=== PATIENT | male | born 1940 | race Caucasian/White ===

== ENCOUNTER 2016-11-05 14:40 | Observation (INO) | payer OTHER ==
[~2016-11-05] VITALS: Ht 175.3 cm; Wt 66.1 kg
[2016-11-05 15:04] LABS: BASOPHILS 0.7 % (0.0-2.0); EOSINOPHILS 3.1 % (0-7); HEMATOCRIT 47.4 % (42.0-54.0); HEMOGLOBIN 16.3 g/dL (13.5-17.5); IMMATURE GRANULOCYTES 0.1 % (0-5); LYMPHOCYTES 29.7 % (15-50); MCH 33.5 pg (26.0-34.0); MCHC 34.4 g/dL (31.0-37.0); MCV 97.5 fL (80.0-100.0); MEAN PLATELET VOLUME 9.3 fL (7.4-10.4); MONOCYTES 11.9 % (2-11); NEUTROPHILS 54.5 % (40-80); PLATELET COUNT 372 10x3/uL (130-400); RBC 4.86 10x6/uL (4.20-6.10); RDW 14.3 % (11.5-14.5); WBC 8.6 10x3/uL (4.8-10.8)
[2016-11-05 15:31] LABS: ALBUMIN 3.3 g/dL (3.4-5.0); ALKALINE PHOSPHATASE 86 U/L (46-116); ALT (SGPT) 20 U/L (10-68); BILIRUBIN - TOTAL 0.74 mg/dL (0.2-1.3); CALC OSMOLALITY 279 mosm/kg (275-300); CALCIUM 8.9 mg/dL (8.5-10.1); CARBON DIOXIDE 25.9 mmol/L (21.0-32.0); CHLORIDE - SERUM 104 mmol/L (98-107); CREATININE - SERUM 1.3 mg/dL (0.6-1.3); GLUCOSE 102 mg/dL (74-106); POTASSIUM - SERUM 4.4 mmol/L (3.5-5.1); PROTEIN - SERUM 6.9 g/dL (6.4-8.2); SODIUM 140 mmol/L (136-145); UREA NITROGEN 16 mg/dL (7-18); eGFR NON AFRICAN AMERICAN 57 mL/min (90-120)
[2016-11-05 15:43] LABS: CHOLESTEROL, TOTAL 121 mg/dL (0-200); CKMB 0.5 U/L (0.0-3.6); CREATINE KINASE 31 UL (21-232); HDL CHOLESTEROL 41 mg/dL (32-96); LDL CHOLESTEROL 61 mg/dL (0-100); LDL-HDL RATIO 1.5 ratio (1.5-3.5); TRIGLYCERIDE 96 mg/dL (30-200)
[2016-11-05 15:44] LABS: TROPONIN-I < 0.017 ng/mL (0.000-0.060)
[2016-11-05 16:03] LABS: APTT 32.9 SECONDS (22.8-39.4); INR 1.1 (0.85-1.17); PROTIME 14.1 SECONDS (11.6-15.0)
--- NOTE | 2016-11-05 21:02 | NUR ---
ARRIVED TO FLOOR, PLACED ON TELEMETRY. ORIENTED TO UNIT, CALL LIGHT IN REACH. 124 UCAF ON TELEMETRY. WILL CONTINUE TO MONITOR. SEE NURSE ASSESSMENT.
[2016-11-05 22:56] VITALS: BP 106/83; Ht 175.3 cm; Wt 66.1 kg
[2016-11-06] VITALS: BP 106/88
[2016-11-06 04:00] VITALS: BP 94/58
--- NOTE | 2016-11-06 05:30 | NUR ---
CALL LIGHT IN REACH. WILL CONTINUE WITH PLAN OF CARE.
[2016-11-06] MEDS ORDERED: LISINOPRIL5 MG PO (06:34)
[2016-11-06] MEDS ORDERED: NORVASC2.5 MG PO (06:35)
--- NOTE | 2016-11-06 07:30 | NUR ---
RECEIVED PT IN BED EYES CLOSED RESP UNLABORED NAD NOTED
[2016-11-06 08:00] VITALS: BP 122/67
[2016-11-06] MEDS ORDERED: BETAPACE 80 MG80 MG PO (10:09)
--- NOTE | 2016-11-06 11:13 | NUR ---
REVIEWED DISCHARGE INSTRUCTIONS PT STATES UNDERSTANDING COPY GIVEN TO PT SALINE LOCK TO LT WRIST DCD NO REDNESS OR EDEMA NOTED TO SITE PT DISCHARGED HOME IN STABLE CONDITION VIA W/C LEFT WITH ALL PERSONAL BELONGINGS
== END 2016-11-06 11:13 | disposition home or self-care (01) ==
LOC: D.ER 14:40 → OBSVTIME 17:01 → D.M2 17:01
PROVIDERS: Emergency Medicine Emergency Medical Services; Nurse Practitioner Acute Care; ADMIT Family Medicine Adult Medicine
DX: I48.91 Unspecified atrial fibrillation (principal); R00.0 Tachycardia, unspecified; I10 Essential (primary) hypertension; F17.203 Nicotine dependence unspecified, with withdrawal; R07.9 Chest pain, unspecified

== ENCOUNTER 2016-11-20 15:34 | Emergency (ER) | payer OTHER ==
[2016-11-05 22:56] VITALS: BMI 21.5
[~2016-11-20 15:34] MED LIST: BETAPACE 80 MG80 MG PO; LISINOPRIL5 MG PO; NORVASC2.5 MG PO
[2016-11-20 16:05] LABS: BASOPHILS 0.4 % (0.0-2.0); EOSINOPHILS 2.3 % (0-7); HEMATOCRIT 49.6 % (42.0-54.0); HEMOGLOBIN 16.7 g/dL (13.5-17.5); IMMATURE GRANULOCYTES 0.2 % (0-5); LYMPHOCYTES 17.2 % (15-50); MCH 32.9 pg (26.0-34.0); MCHC 33.7 g/dL (31.0-37.0); MCV 97.6 fL (80.0-100.0); MEAN PLATELET VOLUME 9.5 fL (7.4-10.4); MONOCYTES 10.5 % (2-11); NEUTROPHILS 69.4 % (40-80); PLATELET COUNT 388 10x3/uL (130-400); RBC 5.08 10x6/uL (4.20-6.10); RDW 14.3 % (11.5-14.5); WBC 11.4 10x3/uL (4.8-10.8)
[2016-11-20 16:18] LABS: ALBUMIN 3.3 g/dL (3.4-5.0); ALKALINE PHOSPHATASE 87 U/L (46-116); ALT (SGPT) 19 U/L (10-68); BILIRUBIN - TOTAL 1.18 mg/dL (0.2-1.3); CALC OSMOLALITY 279 mosm/kg (275-300); CALCIUM 9.1 mg/dL (8.5-10.1); CARBON DIOXIDE 27.8 mmol/L (21.0-32.0); CHLORIDE - SERUM 104 mmol/L (98-107); CREATININE - SERUM 1.5 mg/dL (0.6-1.3); GLUCOSE 104 mg/dL (74-106); PROTEIN - SERUM 7.8 g/dL (6.4-8.2); SODIUM 139 mmol/L (136-145); UREA NITROGEN 17 mg/dL (7-18); eGFR NON AFRICAN AMERICAN 49 mL/min (90-120)
[2016-11-20 16:19] LABS: POTASSIUM - SERUM 5.5 mmol/L (3.5-5.1)
[2016-11-20 16:30] LABS: CHOL - HDL RATIO 3.1 ratio (2.3-4.9); CHOLESTEROL, TOTAL 120 mg/dL (0-200); CKMB 0.7 U/L (0.0-3.6); CREATINE KINASE 80 UL (21-232); HDL CHOLESTEROL 39 mg/dL (32-96); LDL CHOLESTEROL 58 mg/dL (0-100); LDL-HDL RATIO 1.5 ratio (1.5-3.5); TRIGLYCERIDE 115 mg/dL (30-200); TROPONIN-I < 0.017 ng/mL (0.000-0.060)
== END 2016-11-20 17:00 | disposition home or self-care (01) ==
LOC: D.ER 15:34
PROVIDERS: Emergency Medicine
DX: R07.89 Other chest pain (principal); I47.1 Supraventricular tachycardia; I48.91 Unspecified atrial fibrillation; I10 Essential (primary) hypertension; F17.200 Nicotine dependence, unspecified, uncomplicated; I45.10 Unspecified right bundle-branch block

== ENCOUNTER 2016-12-29 00:21 | Emergency (ER) | payer OTHER ==
[2016-11-05 22:56] VITALS: BMI 21.5
[2016-12-29 01:05] LABS: HEMATOCRIT 44.7 % (42.0-54.0); HEMOGLOBIN 15.4 g/dL (13.5-17.5); LYMPHOCYTES 24.9 % (15-50); MCHC 34.5 g/dL (31.0-37.0); MCV 92.9 fL (80.0-100.0); MEAN PLATELET VOLUME 8.9 fL (7.4-10.4); NEUTROPHILS 58.5 % (40-80); PLATELET COUNT 343 10x3/uL (130-400); RBC 4.81 10x6/uL (4.20-6.10); RDW 14.7 % (11.5-14.5); WBC 8.7 10x3/uL (4.8-10.8)
[2016-12-29 01:17] LABS: ALBUMIN 3.2 g/dL (3.4-5.0); ALKALINE PHOSPHATASE 87 U/L (46-116); ALT (SGPT) 16 U/L (10-68); BILIRUBIN - TOTAL 1.71 mg/dL (0.2-1.3); CALC OSMOLALITY 272 mosm/kg (275-300); CALCIUM 8.9 mg/dL (8.5-10.1); CARBON DIOXIDE 27.3 mmol/L (21.0-32.0); CHLORIDE - SERUM 100 mmol/L (98-107); CREATININE - SERUM 1.2 mg/dL (0.6-1.3); GLUCOSE 89 mg/dL (74-106); POTASSIUM - SERUM 3.9 mmol/L (3.5-5.1); PROTEIN - SERUM 7.3 g/dL (6.4-8.2); SODIUM 136 mmol/L (136-145); UREA NITROGEN 19 mg/dL (7-18); eGFR NON AFRICAN AMERICAN 63 mL/min (90-120)
[2016-12-29 01:25] LABS: CHOLESTEROL, TOTAL 136 mg/dL (0-200); CKMB 0.6 U/L (0.0-3.6); CREATINE KINASE 20 UL (21-232); HDL CHOLESTEROL 45 mg/dL (32-96); LDL CHOLESTEROL 76 mg/dL (0-100); LDL-HDL RATIO 1.7 ratio (1.5-3.5); THYROID STIMULATING HORMONE 2.79 uIU/mL (0.36-3.74); TRIGLYCERIDE 76 mg/dL (30-200)
[2016-12-29 01:26] LABS: TROPONIN-I < 0.017 ng/mL (0.000-0.060)
== END 2016-12-29 02:10 | disposition home or self-care (01) ==
LOC: D.ER 00:21
PROVIDERS: Emergency Medicine
DX: R07.9 Chest pain, unspecified (principal); I48.91 Unspecified atrial fibrillation; I10 Essential (primary) hypertension; F17.200 Nicotine dependence, unspecified, uncomplicated

== ENCOUNTER 2016-12-29 11:26 | Emergency (ER) | payer OTHER ==
[2016-11-05 22:56] VITALS: BMI 21.5
== END 2016-12-29 14:50 | disposition left against medical advice (07) ==
LOC: D.ER 11:26
DX: M54.2 Cervicalgia (principal)

== ENCOUNTER 2016-12-29 19:03 | Emergency (ER) | payer OTHER ==
[2016-11-05 22:56] VITALS: BMI 21.5
== END 2016-12-29 20:05 | disposition home or self-care (01) ==
LOC: D.ER 19:03
DX: M54.2 Cervicalgia (principal); I10 Essential (primary) hypertension; F17.200 Nicotine dependence, unspecified, uncomplicated

== ENCOUNTER 2017-01-16 12:37 | Emergency (ER) | payer OTHER ==
[2016-11-05 22:56] VITALS: BMI 21.5
[2017-01-16 13:41] LABS: BASOPHILS 0.6 % (0.0-2.0); EOSINOPHILS 2.8 % (0-7); HEMATOCRIT 45.5 % (42.0-54.0); HEMOGLOBIN 15.2 g/dL (13.5-17.5); IMMATURE GRANULOCYTES 0.6 % (0-5); LYMPHOCYTES 25.7 % (15-50); MCH 31.9 pg (26.0-34.0); MCHC 33.4 g/dL (31.0-37.0); MCV 95.4 fL (80.0-100.0); MEAN PLATELET VOLUME 9.5 fL (7.4-10.4); MONOCYTES 9.2 % (2-11); NEUTROPHILS 61.1 % (40-80); RBC 4.77 10x6/uL (4.20-6.10); RDW 14.9 % (11.5-14.5); WBC 7.1 10x3/uL (4.8-10.8)
[2017-01-16 13:45] LABS: PLATELET COUNT 487 10x3/uL (130-400)
[2017-01-16 14:11] LABS: ALBUMIN 3.2 g/dL (3.4-5.0); ANION GAP 13.5 mmol/L (8-16); BILIRUBIN - TOTAL 1.13 mg/dL (0.2-1.3); CARBON DIOXIDE 26.2 mmol/L (21.0-32.0); CREATININE - SERUM 1.5 mg/dL (0.6-1.3); POTASSIUM - SERUM 4.7 mmol/L (3.5-5.1); PROTEIN - SERUM 6.3 g/dL (6.4-8.2)
== END 2017-01-16 15:35 | disposition home or self-care (01) ==
LOC: D.ER 12:37
PROVIDERS: Emergency Medicine
DX: R06.02 Shortness of breath (principal); F17.200 Nicotine dependence, unspecified, uncomplicated; I10 Essential (primary) hypertension; I47.1 Supraventricular tachycardia

== ENCOUNTER 2017-01-17 13:00 | Emergency (ER) | payer OTHER ==
[2016-11-05 22:56] VITALS: BMI 21.5
[2017-01-17 14:14] LABS: BASOPHILS 0.4 % (0.0-2.0); EOSINOPHILS 2.1 % (0-7); HEMATOCRIT 45.4 % (42.0-54.0); HEMOGLOBIN 15.5 g/dL (13.5-17.5); IMMATURE GRANULOCYTES 0.4 % (0-5); LYMPHOCYTES 25.3 % (15-50); MCH 32.2 pg (26.0-34.0); MCHC 34.1 g/dL (31.0-37.0); MCV 94.2 fL (80.0-100.0); MEAN PLATELET VOLUME 9.3 fL (7.4-10.4); NEUTROPHILS 59.8 % (40-80); PLATELET COUNT 394 10x3/uL (130-400); RBC 4.82 10x6/uL (4.20-6.10); RDW 14.9 % (11.5-14.5); WBC 7.1 10x3/uL (4.8-10.8)
[2017-01-17 14:54] LABS: CALC OSMOLALITY 282 mosm/kg (275-300); CALCIUM 8.9 mg/dL (8.5-10.1); CARBON DIOXIDE 27.5 mmol/L (21.0-32.0); CHLORIDE - SERUM 106 mmol/L (98-107); CREATINE KINASE 17 UL (21-232); CREATININE - SERUM 1.3 mg/dL (0.6-1.3); POTASSIUM - SERUM 4.1 mmol/L (3.5-5.1); SODIUM 140 mmol/L (136-145); TROPONIN-I < 0.017 ng/mL (0.000-0.060); UREA NITROGEN 25 mg/dL (7-18); eGFR NON AFRICAN AMERICAN 57 mL/min (90-120)
[2017-01-17 14:56] LABS: GLUCOSE 97 mg/dL (74-106)
== END 2017-01-17 16:05 | disposition home or self-care (01) ==
LOC: D.ER 13:00
PROVIDERS: Emergency Medicine
DX: I48.91 Unspecified atrial fibrillation (principal); R55 Syncope and collapse; R42 Dizziness and giddiness; I10 Essential (primary) hypertension; F17.200 Nicotine dependence, unspecified, uncomplicated

== ENCOUNTER 2017-01-21 10:15 | Emergency (ER) | payer OTHER ==
[2016-11-05 22:56] VITALS: BMI 21.5
[2017-01-21 11:04] LABS: BASOPHILS 0.4 % (0.0-2.0); EOSINOPHILS 1.8 % (0-7); HEMATOCRIT 44.4 % (42.0-54.0); HEMOGLOBIN 15.1 g/dL (13.5-17.5); IMMATURE GRANULOCYTES 0.1 % (0-5); LYMPHOCYTES 24.7 % (15-50); MCH 32.3 pg (26.0-34.0); MCV 94.9 fL (80.0-100.0); MEAN PLATELET VOLUME 9.3 fL (7.4-10.4); MONOCYTES 8.5 % (2-11); NEUTROPHILS 64.5 % (40-80); PLATELET COUNT 359 10x3/uL (130-400); RBC 4.68 10x6/uL (4.20-6.10); WBC 7.7 10x3/uL (4.8-10.8)
[2017-01-21 11:24] LABS: ALBUMIN 3.2 g/dL (3.4-5.0); BILIRUBIN - TOTAL 1.32 mg/dL (0.2-1.3); CALCIUM 8.5 mg/dL (8.5-10.1); CARBON DIOXIDE 24.9 mmol/L (21.0-32.0); CREATININE - SERUM 1.4 mg/dL (0.6-1.3); POTASSIUM - SERUM 3.9 mmol/L (3.5-5.1); PROTEIN - SERUM 6.8 g/dL (6.4-8.2)
[2017-01-21 11:42] LABS: TROPONIN-I 0.016 ng/mL (0.000-0.060)
== END 2017-01-21 15:50 | disposition home or self-care (01) ==
LOC: D.ER 10:15
PROVIDERS: Emergency Medicine
DX: R42 Dizziness and giddiness (principal); J44.1 Chronic obstructive pulmonary disease with (acute) exacerbation; I48.91 Unspecified atrial fibrillation; I10 Essential (primary) hypertension; F17.200 Nicotine dependence, unspecified, uncomplicated; I45.10 Unspecified right bundle-branch block

== ENCOUNTER 2017-01-23 09:21 | Emergency (ER) | payer OTHER ==
[2016-11-05 22:56] VITALS: BMI 21.5
== END 2017-01-23 13:35 | disposition home or self-care (01) ==
LOC: D.ER 09:21
DX: I48.2 Chronic atrial fibrillation (principal); J44.9 Chronic obstructive pulmonary disease, unspecified; I10 Essential (primary) hypertension; F17.200 Nicotine dependence, unspecified, uncomplicated

== ENCOUNTER 2017-01-23 14:06 | Emergency (ER) | payer OTHER ==
[2016-11-05 22:56] VITALS: BMI 21.5
== END 2017-01-23 21:37 | disposition home or self-care (01) ==
LOC: D.ER 14:06
DX: J44.1 Chronic obstructive pulmonary disease with (acute) exacerbation (principal); F17.200 Nicotine dependence, unspecified, uncomplicated

== ENCOUNTER 2017-02-05 20:43 | Emergency (ER) | payer OTHER ==
[2016-11-05 22:56] VITALS: BMI 21.5
== END 2017-02-05 22:14 | disposition home or self-care (01) ==
LOC: D.ER 20:43
DX: K22.4 Dyskinesia of esophagus (principal); K21.9 Gastro-esophageal reflux disease without esophagitis; I48.2 Chronic atrial fibrillation; J44.9 Chronic obstructive pulmonary disease, unspecified; I10 Essential (primary) hypertension; F17.200 Nicotine dependence, unspecified, uncomplicated

== ENCOUNTER 2017-02-10 16:39 | Emergency (ER) | payer OTHER ==
[2016-11-05 22:56] VITALS: BMI 21.5
[2017-02-10 20:48] LABS: BASOPHILS 0.3 % (0.0-2.0); EOSINOPHILS 0.9 % (0-7); HEMATOCRIT 40.1 % (42.0-54.0); HEMOGLOBIN 13.5 g/dL (13.5-17.5); IMMATURE GRANULOCYTES 0.3 % (0-5); LYMPHOCYTES 17.4 % (15-50); MCH 31.3 pg (26.0-34.0); MCHC 33.7 g/dL (31.0-37.0); MCV 92.8 fL (80.0-100.0); MEAN PLATELET VOLUME 9.3 fL (7.4-10.4); MONOCYTES 10.8 % (2-11); NEUTROPHILS 70.3 % (40-80); PLATELET COUNT 414 10x3/uL (130-400); RBC 4.32 10x6/uL (4.20-6.10); RDW 14.3 % (11.5-14.5); WBC 10.7 10x3/uL (4.8-10.8)
[2017-02-10 21:16] LABS: ALBUMIN 2.6 g/dL (3.4-5.0); ANION GAP 13.1 mmol/L (8-16); BILIRUBIN - TOTAL 0.9 mg/dL (0.2-1.3); CALCIUM 8.7 mg/dL (8.5-10.1); CARBON DIOXIDE 25.6 mmol/L (21.0-32.0); CREATININE - SERUM 1.3 mg/dL (0.6-1.3); POTASSIUM - SERUM 3.7 mmol/L (3.5-5.1); PROTEIN - SERUM 6.2 g/dL (6.4-8.2)
== END 2017-02-10 16:41 | disposition home or self-care (01) ==
LOC: D.ER 16:39
PROVIDERS: Nurse Practitioner Family
DX: M79.661 Pain in right lower leg (principal); M79.1 Myalgia; F17.200 Nicotine dependence, unspecified, uncomplicated; I48.2 Chronic atrial fibrillation; J44.9 Chronic obstructive pulmonary disease, unspecified; K21.9 Gastro-esophageal reflux disease without esophagitis; I10 Essential (primary) hypertension

== ENCOUNTER 2017-02-11 23:52 | Emergency (ER) | payer OTHER ==
[2016-11-05 22:56] VITALS: BMI 21.5
[2017-02-12 01:38] LABS: BASOPHILS 0.2 % (0.0-2.0); EOSINOPHILS 1.2 % (0-7); HEMATOCRIT 37.8 % (42.0-54.0); HEMOGLOBIN 12.8 g/dL (13.5-17.5); IMMATURE GRANULOCYTES 0.3 % (0-5); MCH 31.3 pg (26.0-34.0); MCHC 33.9 g/dL (31.0-37.0); MCV 92.4 fL (80.0-100.0); MEAN PLATELET VOLUME 9.2 fL (7.4-10.4); MONOCYTES 11.6 % (2-11); NEUTROPHILS 67.7 % (40-80); PLATELET COUNT 420 10x3/uL (130-400); RBC 4.09 10x6/uL (4.20-6.10); RDW 14.5 % (11.5-14.5)
[2017-02-12 01:55] LABS: APTT 33.4 SECONDS (22.8-39.4); INR 1.01 (0.85-1.17); PROTIME 13.2 SECONDS (11.6-15.0)
[2017-02-12 02:00] LABS: ALBUMIN 2.5 g/dL (3.4-5.0); BILIRUBIN - TOTAL 8.5 mg/dL (0.2-1.3); CALCIUM 8.5 mg/dL (8.5-10.1); CARBON DIOXIDE 25.5 mmol/L (21.0-32.0); CREATININE - SERUM 1.1 mg/dL (0.6-1.3); POTASSIUM - SERUM 3.5 mmol/L (3.5-5.1); PROTEIN - SERUM 6.1 g/dL (6.4-8.2)
== END 2017-02-12 03:24 | disposition short-term general hospital (02) ==
LOC: D.ER 23:52
PROVIDERS: Family Medicine
DX: I74.9 Embolism and thrombosis of unspecified artery (principal); I10 Essential (primary) hypertension; I48.91 Unspecified atrial fibrillation; I45.10 Unspecified right bundle-branch block

== ENCOUNTER 2017-02-26 16:28 | Emergency (ER) | payer OTHER ==
[2017-02-27 19:11] LABS: BASOPHILS 0.5 % (0-2); EOSINOPHILS 1.8 % (0-7); HEMATOCRIT 35.6 % (42.0-54.0); HEMOGLOBIN 11.6 g/dL (13.5-17.5); IMMATURE GRANULOCYTES 0.6 % (0-5); LYMPHOCYTES 23.4 % (15-50); MCH 30.7 pg (26.0-34.0); MCHC 32.6 g/dL (31.0-37.0); MCV 94.2 fL (80.0-100.0); MONOCYTES 10.8 % (2-11); NEUTROPHILS 62.9 % (40-80); RBC 3.78 10x6/uL (4.20-6.10); RDW 16.4 % (11.5-14.5); WBC 10.9 10x3/uL (4.8-10.8)
[2017-02-27 19:12] LABS: PLATELET COUNT 572 10x3/uL (130-400)
[2017-02-27 19:20] LABS: APTT 30.4 SECONDS (22.8-39.4); INR 1.03 (0.85-1.17); PROTIME 13.3 SECONDS (11.6-15.0)
[2017-02-27 19:25] LABS: ALBUMIN 2.9 g/dL (3.4-5.0); ALKALINE PHOSPHATASE 97 U/L (46-116); ALT (SGPT) 33 U/L (10-68); BILIRUBIN - TOTAL 0.56 mg/dL (0.2-1.3); CALC OSMOLALITY 280 mosm/kg (275-300); CALCIUM 8.5 mg/dL (8.5-10.1); CARBON DIOXIDE 29.5 mmol/L (21.0-32.0); CHLORIDE - SERUM 103 mmol/L (98-107); CREATININE - SERUM 1.4 mg/dL (0.6-1.3); GLUCOSE 89 mg/dL (74-106); POTASSIUM - SERUM 4.2 mmol/L (3.5-5.1); PROTEIN - SERUM 6.7 g/dL (6.4-8.2); SODIUM 139 mmol/L (136-145); UREA NITROGEN 24 mg/dL (7-18); eGFR NON AFRICAN AMERICAN 53 mL/min (90-120)
[2017-02-27 19:31] LABS: APPEARANCE CLEAR (CLEAR); COLOR YELLOW (YELLOW)
[2017-02-27 19:32] LABS: BILIRUBIN NEGATIVE (NEGATIVE); GLUCOSE NEGATIVE (NEGATIVE); KETONE NEGATIVE (NEGATIVE); LEUKOCYTE ESTERASE NEGATIVE (NEGATIVE); NITRITE NEGATIVE (NEGATIVE); PROTEIN NEGATIVE (NEGATIVE); UROBILINOGEN NORMAL (NORMAL)
[2017-02-27 19:34] LABS: CREATINE KINASE 32 UL (21-232); PRO BNP 3585 pg/mL (0-125)
[2017-02-27 19:36] LABS: TROPONIN-I < 0.017 ng/mL (0.000-0.060)
== END 2017-02-26 17:00 | disposition left against medical advice (07) ==
LOC: D.ER 16:28
PROVIDERS: Emergency Medicine
DX: I74.9 Embolism and thrombosis of unspecified artery (principal); I10 Essential (primary) hypertension

== ENCOUNTER 2017-02-27 04:01 | Emergency (ER) | payer OTHER ==
[2016-11-05 22:56] VITALS: BMI 21.5
== END 2017-02-27 05:55 | disposition home or self-care (01) ==
LOC: D.ER 04:01
DX: I73.9 Peripheral vascular disease, unspecified (principal); I74.8 Embolism and thrombosis of other arteries

== ENCOUNTER 2017-02-27 17:56 | Emergency (ER) | payer OTHER ==
[2016-11-05 22:56] VITALS: BMI 21.5
== END 2017-02-27 20:52 | disposition short-term general hospital (02) ==
LOC: D.ER 17:56
DX: Z02.9 Encounter for administrative examinations, unspecified (principal)